=== PATIENT | female | born 1975 | race Caucasian/White ===

== ENCOUNTER 2023-03-07 19:05 | Emergency (ER) | payer MEDICARE, MEDICAID, SELFPAY ==
[2023-03-07 19:25] VITALS: BP 117/89; PULSE 77; RESP 16; TEMP 36.4; O2SAT 99
--- NOTE | 2023-03-07 19:29 | ED.URI ---
HPI - URI/Sore Throat General Chief Complaint: Upper Respiratory Infection Stated Complaint: throat/headache/aches Time Seen by Provider: 03/07/23 19:33 Source: patient and RN notes reviewed Mode of arrival: ambulatory Limitations: no limitations History of Present Illness HPI Narrative: 47-year-old female presents with concern for 3-4 day history of not feeling well. She is reporting body aches, chills, sore throat. Reports she had rhinorrhea nasal congestion that resolved when she started having a sore throat. She reports she has been taking ibuprofen and cough drops with little relief. 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 MD elicited complaint: sore throat Related Data Home Medications Medication Instructions Recorded Confirmed buprenorphine 20 mcg/hour weekly 03/07/23 transdermal patch (Butrans) estradiol 0.025 mg/24 hr weekly 03/07/23 transdermal patch levothyroxine 03/07/23 sertraline 03/07/23 Allergies Allergy/AdvReac Type Severity Reaction Status Date / Time No Known Allergies Allergy Mild Verified 10/26/21 12:30 Review of Systems Review of Systems: CONSTITUTIONAL: Reports malaise, chills EYES: Denies visual changes, redness, or discharge. ENT: Denies rhinorrhea, congestion, sinus pain, otalgia. Reports sore throat. CARDIOVASCULAR: Denies chest pain, palpitations, or edema. RESPIRATORY: Reports occasional cough. Denies dyspnea. GASTROINTESTINAL: Denies abdominal pain, nausea, vomiting, diarrhea SKIN: Denies rash or itching. MUSCULOSKELETAL: Reports myalgia. NEUROLOGIC: Reports headache. All systems reviewed & are unremarkable except as noted in HPI and below PMFSH Comments At time of signature, agree with nursing past medical, surgical, social and family history. There is no relevant family history pertinent to the presenting complaint Exam Narrative: GENERAL: Well-appearing, well-nourished, and in no acute distress. HEAD: Normocephalic EYES: PERRLA, conjunctivae clear ENT: Nares clear, turbinates edematous and erythematous, clear discharge. Mucous membranes moist. TM pearly saleh with dull light reflex bilaterally; no tragal tenderness. Oropharynx not erythematous without lesions. Tonsils not enlarged and without exudate, no drooling, no hoarseness, no trismus, uvula midline. NECK: Supple. No lymphadenopathy CHEST: Clear to auscultation, breath sounds equal. No wheezing, rhonchi, rales, or stridor. No respiratory distress, speaks in full sentences. HEART: Regular rate and rhythm. No murmur heard. SKIN: Warm, dry, no rash. NEURO: Alert and oriented x3. PSYCH: Normal mood and affect Course Course Emergency Course: Patient is aware of diagnosis, understands and agrees to treatment plan. Anticipatory guidance given. Patient agrees to follow-up as directed and is aware of reasons to seek care at the emergency department. Portions of this record may have been created with voice recognition software Level of Care: Express Care Visit Vital Signs Vital signs: Vital Signs Temperature 97.6 F 03/07/23 19:25 Pulse Rate 77 03/07/23 19:25 Respiratory Rate 16 03/07/23 19:25 Blood Pressure 117/89 03/07/23 19:25 Pulse Oximetry 99 03/07/23 19:25 Oxygen Delivery Room Air 03/07/23 19:25 Temperature 97.6 F 03/07/23 19:25 Pulse Rate 77 03/07/23 19:25 Respiratory Rate 16 03/07/23 19:25 Blood Pressure 117/89 03/07/23 19:25 Pulse Oximetry 99 03/07/23 19:25 Oxygen Delivery Room Air 03/07/23 19:25 Reviewed. MDM - URI/Sore Throat MDM Narrative Medical decision making narrative: Differential diagnosis considered: Guardado virus, strep pharyngitis, allergic rhinitis, upper respiratory tract infection, sinusitis, rhinosinusitis, nasopharyngitis. viral pharyngitis, otitis media, otitis externa, pneumonia, bronchitis, viral cough syndrome, viral syndrome, and influenza. Exam findings show no acute concerns or hsu
== END 2023-03-07 19:53 | disposition home or self-care (01) ==
PROVIDERS: Emergency Provider Nurse Practitioner; PCP Family Medicine
DX: B34.9 Viral infection, unspecified (principal); Z20.822 Contact with and (suspected) exposure to COVID-19
CPT/HCPCS: 87081; 87426; 87804; 87880; 99203; C9803; G0463